=== PATIENT | male | born 1955 | race African-American/Black ===

== ENCOUNTER 2017-03-04 22:05 | Inpatient (IN) | payer MEDICAID, OTHER ==
[~2017-03-04] VITALS: Ht 185.4 cm; Wt 114.8 kg
[~2017-03-04 22:05] MED LIST: AMARYL1 MG PO; APRESOLINE100 MG PO; ATENOLOL50 MG PO; CATAPRES0.2 MG PO; CYCLOBENZAPRINE10 MG ORAL; DOC-Q-LACE100 MG PO; JANUVIA100 MG PO; NORVASC5 MG PO; ONDANSETRON ODT4 MG PO; PROCHLORPERAZINE5 MG ORAL; PROCHLORPERAZINE5 MG PO; TRICOR145 MG PO
[2017-03-04 22:30] VITALS: BP 135/73
[2017-03-04 23:31] LABS: APPEARANCE,URINE CLEAR; KETONES,URINE NEGATIVE (NEGATIVE); LEUKOCYTE ESTERASE ,URINE NEGATIVE (NEGATIVE); NITRITE,URINE NEGATIVE (NEGATIVE); PH,URINE 5 (4.5-8.0); UROBILINOGEN,URINE NORMAL MG/DL (0.0-1.0)
[2017-03-04 23:32] LABS: BASOPHILS % (AUTO) 1.8 % (0.0-2.0); EOSINOPHILS % (AUTO) 2.8 % (0.0-3.0); LYMPHOCYTES % (AUTO) 22.5 % (20.0-45.0); MEAN CORPUSCULAR HEMOGLOBIN 30.8 PG (27.0-31.0); MEAN CORPUSCULAR HGB CONC 34.5 G/DL (32.0-36.0); MEAN CORPUSCULAR VOLUME 89 FL (80-99); MEAN PLATELET VOLUME 8.5 FL (6.5-10.1); MONOCYTES % (AUTO) 12.5 % (1.0-10.0); NEUTROPHILS % (AUTO) 60.4 % (45.0-75.0); PLATELET COUNT 184 K/UL (150-450); RED BLOOD COUNT 3.76 M/UL (4.70-6.10); WHITE BLOOD COUNT 7.7 K/UL (4.8-10.8)
[2017-03-04 23:48] LABS: PROTEIN,URINE NEGATIVE (NEGATIVE)
[2017-03-04 23:52] LABS: ALANINE AMINOTRANSFERASE 11 U/L (3-41); ALBUMIN/GLOBULIN RATIO 1.1 (1.0-2.7); ANION GAP 10 (5-15); ASPARTATE AMINO TRANSFERASE 14 U/L (5-40); CALCIUM 9.6 mg/dL (8.6-10.2); CARBON DIOXIDE 27 mEQ/L (20-30); CHLORIDE 94 mEQ/L (98-107); GLOMERULAR FILTRATION RATE 41.1 mL/min (>60); HEMOLYSIS 0; MAGNESIUM 1.8 mg/dL (1.7-2.5); POTASSIUM 4.4 mEQ/L (3.4-4.9); SODIUM 131 mEQ/L (135-145); TOTAL PROTEIN 7.8 g/dL (6.6-8.7)
[2017-03-04 23:58] LABS: TROPONIN I < 0.30 ng/mL (<=0.30)
[2017-03-05] VITALS (8 sets, daily range): BP systolic 129–156; BP diastolic 64–83
--- NOTE | 2017-03-05 00:10 | Emergency Room Report ---
History of Present Illness General Chief Complaint: Abnormal Labs Source: Patient, Family Member, Caregiver Present Illness HPI The patient presents with elevated blood sugar. Apparently his insulin was changed a month ago. The mobile home set up person is uncertain what type of insulin he is on but it is most likely 70/30. He is taking 15 units 3 times a day. His blood sugar has steadily climbed. He complains about and polydipsia. His blood sugar is in the 400s tonight. Denies any chest pain, shortness of breath, palpitations, nausea, vomiting, diarrhea, dysuria. The patient is legally blind. He denies any headache. He also denies dizziness. The mobile home set up person is his sister. She does not understand about the different types of insulin. There is no history of renal disease. Allergies: Coded Allergies: No Known Allergies (Verified , 04/16/11) Patient History Past Medical History: see triage record Past Surgical History: other - eye surgery Social History: Denies: smoking Social History Narrative Lives with mobile home set up person at home who is his sister Reviewed Nursing Documentation: PMH: Agreed, PSxH: Agreed Nursing Documentation-PM Past Medical History: No History, Except For Hx Cardiac Problems: Yes Hx Hypertension: Yes Hx Diabetes: Yes - Type 2 Hx Cancer: No Hx Gastrointestinal Problems: Yes - bloating Hx Speech Problem: Yes Hx Dizziness: Yes Hx Numbness: Yes - BOTH HANDS Hx Weakness: Yes - ENTIRE BODY Hx Fatigue: Yes Hx Neurologic Surgery: No Hx Brain Shunt: No Review of Systems All Other Systems: negative except mentioned in HPI Physical Exam Vital Signs Date Time Temp Pulse Resp B/P Pulse Ox O2 Delivery O2 Flow Rate FiO2 03/04/17 22:22 98.2 72 16 135/73 99 Room Air Sp02 EP Interpretation: reviewed, normal General Appearance: well appearing, no apparent distress, GCS 15 Head: normocephalic Eyes: bilateral eye normal inspection ENT: moist mucus membranes - poor dentition Neck: supple Respiratory: lungs clear, normal breath sounds Cardiovascular #1: regular rate, rhythm Cardiovascular #2: 2+ radial (R) Gastrointestinal: normal inspection, normal bowel sounds, non tender, no mass, non-distended, overweight Musculoskeletal: back normal, normal range of motion Neurologic: alert, oriented x3, grossly normal Psychiatric: mood/affect normal Skin: normal inspection, warm/dry Medical Decision Making Diagnostic Impression: Primary Impression: Hyperglycemia Additional Impression: Renal failure ER Course Patient presents with high blood sugar. Differential includes DKA, hyperosmolar state, hyperglycemia, renal dysfunction and other dry abnormalities. Clinically the patient is fairly stable however needs to exclude cardiac cause. Labs EKG chest x-ray will be obtained. Also the patient will be treated with IV hydration and possibly insulin. Sugars high after initial bolus. Insulin was given. There is no evidence of DKA. However the patient does have renal failure. Indices do not demonstrate the need for dialysis acutely. However his BUN and creatinine are elevated compared to previous studies we had and there is no prior history of renal failure. The mobile home set up person is uncertain about how best to control blood sugars. Because of this constellation of factors the patient is admitted to the hospital. Patient was presented to Dr. Castro and accepted in transfer to [facility]. Due to time delay - admitting here. Dr. Aguila contacted. Dr. Aguila states not seen for long time. Admit to Dr. Velásquez. Laboratory Tests Test 03/04/17 23:13 03/04/17 23:19 Troponin I < 0.30 ng/mL (<=0.30) White Blood Count 7.7 K/UL (4.8-10.8) Red Blood Count 3.76 M/UL (4.70-6.10) L Hemoglobin 11.6 G/DL (14.2-18.0) L Hematocrit 33.6 % (42.0-52.0) L Mean Corpuscular Volume 89 FL (80-99) Mean Corpuscular Hemoglobin 30.8 PG (27.0-31.0) Mean Corpuscular Hemoglobin Concent 34.5 G/DL (32.0-36.0) Red Cell Distribution Width 12.0 % (11.6-14.8) Platelet Count 184 K/UL (150-450) Mean Platelet Volume 8.5 FL (6.5-10.1) Neutrophils (%) (Auto) 60.4 % (45.0-75.0) Lymphocytes (%) (Auto) 22.5 % (20.0-45.0) Monocytes (%) (Auto) 12.5 % (1.0-10.0) H Eosinophils (%) (Auto) 2.8 % (0.0-3.0) Basophils (%) (Auto) 1.8 % (0.0-2.0) Urine Color Yellow Urine Appearance Clear Urine pH 5 (4.5-8.0) Urine Specific [place] 1.015 (1.005-1.035) Urine Protein Negative (NEGATIVE) Urine Glucose (UA) 4+ (NEGATIVE) H Urine Ketones Negative (NEGATIVE) Urine Occult Blood Negative (NEGATIVE) Urine Nitrite Negative (NEGATIVE) Urine Bilirubin Negative (NEGATIVE) Urine Urobilinogen Normal MG/DL (0.0-1.0) Urine Leukocyte Esterase Negative (NEGATIVE) Sodium Level 131 mEQ/L (135-145) L Potassium Level 4.4 mEQ/L (3.4-4.9) Chloride Level 94 mEQ/L (98-107) L Carbon Dioxide Level 27 mEQ/L (20-30) Anion Gap 10 (5-15) Blood Urea Nitrogen 28 mg/dL (7-23) H Creatinine 2.0 mg/dL (0.7-1.2) H Estimate Glomerular Filtration Rate 41.1 mL/min (>60) Glucose Level 369 mg/dL (74-106) H Calcium Level 9.6 mg/dL (8.6-10.2) Magnesium Level 1.8 mg/dL (1.7-2.5) Total Bilirubin 0.4 mg/dL (0.0-1.2) Aspartate Amino Transferase (AST) 14 U/L (5-40) Alanine Aminotransferase (ALT) 11 U/L (3-41) Alkaline Phosphatase 47 U/L (40-129) Total Protein 7.8 g/dL (6.6-8.7) Albumin 4.2 g/dL (3.5-5.2) Globulin 3.6 g/dL Albumin/Globulin Ratio 1.1 (1.0-2.7) Acetone Level Negative (NEGATIVE) EKG Diagnostic Results Rate: normal Rhythm: NSR ST Segments: no acute changes - 1st degree AV block Rhythm Strip Diag. Results EP Interpretation: yes Rhythm: NSR, no PVC's, no ectopy Chest X-Ray Diagnostic Results EP Interpretation: Yes Findings: no consolidation, no effusion, no pneumothorax, other - inc cor and RML atelectasis Number of Views: 1 Last Vital Signs Date Time Temp Pulse Resp B/P Pulse Ox O2 Delivery O2 Flow Rate FiO2 03/05/17 18:16 156/74 03/05/17 16:02 98.1 71 20 99 Room Air Status: improved Disposition: ADMITTED INPATIENT Condition: Serious Referrals: GM AGUILA (PCP) Oc [place] M.D. Mar 05, 2017 00:10
[2017-03-05] MEDS ORDERED: UNOBMED (01:23)
[2017-03-05 08:00] LABS: EOSINOPHILS % (AUTO) 2.9 % (0.0-3.0); LYMPHOCYTES % (AUTO) 20.2 % (20.0-45.0); MEAN CORPUSCULAR HEMOGLOBIN 29.5 PG (27.0-31.0); MEAN CORPUSCULAR HGB CONC 32.7 G/DL (32.0-36.0); MEAN CORPUSCULAR VOLUME 90 FL (80-99); MEAN PLATELET VOLUME 9.9 FL (6.5-10.1); MONOCYTES % (AUTO) 10.6 % (1.0-10.0); NEUTROPHILS % (AUTO) 64.2 % (45.0-75.0); PLATELET COUNT 187 K/UL (150-450); RED BLOOD COUNT 3.56 M/UL (4.70-6.10); RED CELL DISTRIBUTION WIDTH 12.2 % (11.6-14.8); WHITE BLOOD COUNT 6.4 K/UL (4.8-10.8)
[2017-03-05 08:08] LABS: ALBUMIN/GLOBULIN RATIO 1.1 (1.0-2.7); CALCIUM 8.9 mg/dL (8.6-10.2); CREATININE 1.6 mg/dL (0.7-1.2); GLOMERULAR FILTRATION RATE 53.2 mL/min (>60); PHOSPHORUS 2.9 mg/dL (2.5-4.8); POTASSIUM 4.2 mEQ/L (3.4-4.9); TOTAL PROTEIN 6.8 g/dL (6.6-8.7)
--- NOTE | 2017-03-05 11:37 | Diagnostic Imaging Report ---
Indication: Chest pain Technique: One view of the chest Comparison: 10/04/14 Findings: The heart is enlarged. No definite acute infiltrates or effusions. Impression: Cardiomegaly No acute process This agrees with the preliminary interpretation provided by the emergency room physician
[2017-03-05] MEDS ORDERED: NovoLOG Insulin Flexpen SUBQ SCH (12:00)
[2017-03-05] MEDS: NovoLOG Insulin Flexpen SUBQ SCH ×4 (12:25→21:52)
[2017-03-05] MEDS ORDERED: NEURONTIN300 MG ORAL (14:55)
[2017-03-05] MEDS ORDERED: HUMALOG100 UNIT/4 SUBQ (14:55)
[2017-03-05] MEDS ORDERED: GLIMEPIRIDE4 MG ORAL (14:55)
--- NOTE | 2017-03-05 15:18 | Consultation ---
History of Present Illness General Date patient seen: Mar 05, 2017 Chief Complaint: Abnormal Labs Referring physician: DR. Ash Reason for Consultation: inpatient management Present Illness HPI 61 year old male with hx of DM, HTN, diabetic retinopathy and nephropathy presented with elevated blood sugar. He is taking 15 units 3 times a day. His blood sugar steadily climbed. His blood sugars in the 400s tonight. Allergies: Coded Allergies: No Known Allergies (Verified , 04/16/11) Medication History Scheduled Atenolol* (Tenormin*), 100 MG PO BID, (Reported) Clonidine Hcl* (Catapres*), 0.2 MG PO TID, (Reported) Fenofibrate (Tricor), 145 MG PO DAILY, (Reported) Gabapentin (Neurontin), 300 MG ORAL THREE TIMES A DAY, (Reported) Gabapentin (Neurontin), 300 MG ORAL THREE TIMES A DAY, (Reported) Glimepiride* (Glimepiride*), 4 MG ORAL BEFORE BREAKFAST, (Reported) Hydralazine HCl (Hydralazine HCl), 100 MG PO BID, (Reported) Miscellaneous Medications Insulin Lispro (Humalog), 0 SUBQ, (Reported) Unable to Obtain Medications (Unable To Obtain Meds), (Reported) Discontinued Medications Glimepiride* (Amaryl*), 2 MG PO DAILY, (Reported) Discontinued Reason: MD discontinued med Sitagliptin (Januvia), 100 MG PO DAILY, (Reported) Discontinued Reason: Pt had allergic rxn Patient History Healthcare decision maker Resuscitation status Full Code Advanced Directive on File No Past Medical/Surgical History Past Medical/Surgical History: (1) Diabetes mellitus (2) HTN (hypertension) Review of Systems All Other Systems: negative except mentioned in HPI Physical Exam General Appearance: WD/WN Lines, tubes and drains: peripheral HEENT: normocephalic, atraumatic Neck: non-tender, normal alignment Respiratory/Chest: chest wall non-tender, lungs clear Cardiovascular/Chest: normal peripheral pulses, normal rate Abdomen: normal bowel sounds Genitourinary/Rectal: normal genital exam Last 24 Hour Vital Signs Date Time Temp Pulse Resp B/P Pulse Ox O2 Delivery O2 Flow Rate FiO2 03/05/17 11:47 98.2 69 20 153/83 99 Room Air 03/05/17 09:08 98.0 77 20 129/64 98 Room Air 03/05/17 08:00 98.0 70 16 137/70 99 Room Air 03/05/17 06:30 98.0 70 16 137/70 99 Room Air 03/05/17 04:30 98.0 65 17 143/72 99 Room Air 03/05/17 02:30 98.2 69 15 140/70 99 Room Air 03/05/17 00:30 98.2 69 15 137/69 99 Room Air 03/04/17 22:30 98.2 72 16 135/73 99 Room Air 03/04/17 22:22 98.2 72 16 135/73 99 Room Air Intake and Output 03/04/17 03/05/17 19:00 07:00 Intake Total 1000 ml Output Total 1400 ml Balance -400 ml IV Total 1000 ml Output Urine Total 1400 ml # Voids 1 Laboratory Tests Test 03/04/17 23:13 03/04/17 23:19 03/05/17 07:10 Troponin I < 0.30 ng/mL (<=0.30) White Blood Count 7.7 K/UL (4.8-10.8) 6.4 K/UL (4.8-10.8) Red Blood Count 3.76 M/UL (4.70-6.10) L 3.56 M/UL (4.70-6.10) L Hemoglobin 11.6 G/DL (14.2-18.0) L 10.5 G/DL (14.2-18.0) L Hematocrit 33.6 % (42.0-52.0) L 32.0 % (42.0-52.0) L Mean Corpuscular Volume 89 FL (80-99) 90 FL (80-99) Mean Corpuscular Hemoglobin 30.8 PG (27.0-31.0) 29.5 PG (27.0-31.0) Mean Corpuscular Hemoglobin Concent 34.5 G/DL (32.0-36.0) 32.7 G/DL (32.0-36.0) Red Cell Distribution Width 12.0 % (11.6-14.8) 12.2 % (11.6-14.8) Platelet Count 184 K/UL (150-450) 187 K/UL (150-450) Mean Platelet Volume 8.5 FL (6.5-10.1) 9.9 FL (6.5-10.1) Neutrophils (%) (Auto) 60.4 % (45.0-75.0) 64.2 % (45.0-75.0) Lymphocytes (%) (Auto) 22.5 % (20.0-45.0) 20.2 % (20.0-45.0) Monocytes (%) (Auto) 12.5 % (1.0-10.0) H 10.6 % (1.0-10.0) H Eosinophils (%) (Auto) 2.8 % (0.0-3.0) 2.9 % (0.0-3.0) Basophils (%) (Auto) 1.8 % (0.0-2.0) 2.0 % (0.0-2.0) Urine Color Yellow Urine Appearance Clear Urine pH 5 (4.5-8.0) Urine Specific [place] 1.015 (1.005-1.035) Urine Protein Negative (NEGATIVE) Urine Glucose (UA) 4+ (NEGATIVE) H Urine Ketones Negative (NEGATIVE) Urine Occult Blood Negative (NEGATIVE) Urine Nitrite Negative (NEGATIVE) Urine Bilirubin Negative (NEGATIVE) Urine Urobilinogen Normal MG/DL (0.0-1.0) Urine Leukocyte Esterase Negative (NEGATIVE) Sodium Level 131 mEQ/L (135-145) L 137 mEQ/L (135-145) Potassium Level 4.4 mEQ/L (3.4-4.9) 4.2 mEQ/L (3.4-4.9) Chloride Level 94 mEQ/L (98-107) L 99 mEQ/L (98-107) Carbon Dioxide Level 27 mEQ/L (20-30) 24 mEQ/L (20-30) Anion Gap 10 (5-15) 14 (5-15) Blood Urea Nitrogen 28 mg/dL (7-23) H 25 mg/dL (7-23) H Creatinine 2.0 mg/dL (0.7-1.2) H 1.6 mg/dL (0.7-1.2) H Estimat Glomerular Filtration Rate 41.1 mL/min (>60) 53.2 mL/min (>60) Glucose Level 369 mg/dL (74-106) H 233 mg/dL (74-106) #H Calcium Level 9.6 mg/dL (8.6-10.2) 8.9 mg/dL (8.6-10.2) Magnesium Level 1.8 mg/dL (1.7-2.5) Total Bilirubin 0.4 mg/dL (0.0-1.2) 0.3 mg/dL (0.0-1.2) Aspartate Amino Transf (AST/SGOT) 14 U/L (5-40) 13 U/L (5-40) Alanine Aminotransferase (ALT/SGPT) 11 U/L (3-41) 7 U/L (3-41) Alkaline Phosphatase 47 U/L (40-129) 36 U/L (40-129) L Total Protein 7.8 g/dL (6.6-8.7) 6.8 g/dL (6.6-8.7) Albumin 4.2 g/dL (3.5-5.2) 3.7 g/dL (3.5-5.2) Globulin 3.6 g/dL 3.1 g/dL Albumin/Globulin Ratio 1.1 (1.0-2.7) 1.1 (1.0-2.7) Acetone Level Negative (NEGATIVE) Phosphorus Level 2.9 mg/dL (2.5-4.8) Height (Feet): 6 Height (Inches): 1.00 Weight (Pounds): 253 Medications Current Medications Medications (Trade) Dose Ordered Sig/Enrrique Route PRN Reason Start Time Stop Time Status Last Admin Dose Admin Dextrose (Dextrose 50%) STAT PRN IV Hypoglycemia 03/05/17 09:30 04/04/17 09:29 Insulin Aspart (NovoLOG) x24 EVERY 4 HOURS SUBQ 03/05/17 12:00 04/04/17 11:59 03/05/17 12:25 Sodium Chloride (Sodium Chloride 1000ml bag) 1,000 ml @ 200 mls/hr Q5H IV 03/05/17 07:30 04/04/17 07:29 03/05/17 13:22 Assessment/Plan Problem List: (1) Uncontrolled diabetes mellitus ICD Codes: E11.65 - Type 2 diabetes mellitus with hyperglycemia SNOMED: 962257172 (2) HTN (hypertension) ICD Codes: I10 - Essential (primary) hypertension SNOMED: 49702672 Assessment/Plan sliding scale insulin coverage endo consult ABNER COATES Mar 05, 2017 15:18
[2017-03-05] MEDS: HydrALAZINE 50mg tab ORAL SCH ×2 (16:16→23:17)
[2017-03-05 16:35] LABS: URIC ACID 3.6 mg/dL (3.0-7.5)
[2017-03-05] MEDS: cloNIDine 0.2mg Tab ORAL SCH (18:16)
--- NOTE | 2017-03-05 18:45 | History & Physical ---
History and Physical History & Physicial Dictated for Int Med-Dr Velásquez no. [id number]. KHALIF SOLANO Mar 05, 2017 18:45
[2017-03-05] MEDS ORDERED: Levemir Flexpen SUBQ SCH (21:00)
[2017-03-05 21:25] LABS: APPEARANCE,URINE CLEAR; KETONES,URINE NEGATIVE (NEGATIVE); LEUKOCYTE ESTERASE ,URINE NEGATIVE (NEGATIVE); NITRITE,URINE NEGATIVE (NEGATIVE); PH,URINE 6 (4.5-8.0); PROTEIN,URINE 2+ (NEGATIVE); UROBILINOGEN,URINE 1 MG/DL (0.0-1.0)
[2017-03-05 22:12] LABS: AMORPHOUS SEDIMENT,UR FEW /LPF; BACTERIA,URINE FEW /HPF
[2017-03-05] MEDS: Heparin 5000 units/ml inj SUBQ SCH (23:19)
--- NOTE | 2017-03-05 23:38 | History and Physical Report ---
DATE OF ADMISSION: 03/05/2017 CHIEF COMPLAINT: The patient is a 61-year-old male, presents with chief complaint of high blood sugars. HISTORY OF PRESENT ILLNESS: The patient has a history of type 2 diabetes. The patient states that his insurance changed about a month ago. The patient was previously on 70/30 insulin. I was no longer covered by his insurance. The patient was switched to regular insulin. The patient takes regular insulin 10 units before every meals and nightly. The patient states over the last month his blood sugars have been increasingly high. The patient states yesterday his blood sugar reached 454. The patient presented to [facility]. The patient was admitted for hyperglycemia to rule out diabetic ketoacidosis. REVIEW OF SYSTEMS: Constitutional: The patient denies weight loss or weight gain. The patient denies fever or chills. HEENT: The patient denies any ear or throat pain. Cardiovascular: The patient denies palpitations or chest pain. Chest: The patient denies wheeze or shortness of breath. Abdomen: The patient denies nausea, vomiting, diarrhea, or constipation. Genitourinary: The patient denies dysuria or increased frequency of urination. Neuromuscular: The patient denies seizures or generalized weakness. PAST MEDICAL HISTORY: Significant for: 1. Type 2 diabetes. 2. Hypertension. 3. Osteoarthritis. 4. Diabetic peripheral neuropathy. PAST SURGICAL HISTORY: Significant for debridement of a right diabetic foot ulcer. CURRENT MEDICATIONS: 1. atenolol 50 mg one tablet p.o. daily. 2. Clonidine 0.2 mg one tablet p.o. three times daily. 3. Fenofibrate 145 mg one tablet p.o. daily. 4. Gabapentin 300 mg one tablet p.o. three times daily. 5. Glimepiride 4 mg one tablet p.o. q.a.m. 6. Hydralazine 100 mg one tablet p.o. twice daily. 7. Regular insulin 10 units subcutaneously before every meal and nightly. ALLERGIES: No known drug allergies. SOCIAL HISTORY: The patient is single and is disabled. The patient has a caregiver, his sister Evelyn Fink. The patient denies tobacco or alcohol use. PHYSICAL EXAMINATION: VITAL SIGNS: Temperature 98.0, respirations 16, pulse 70, and blood pressure 137/70. GENERAL: The patient is a well-developed and well-nourished male, in no apparent distress. HEENT: Eyes, pupils are equal and responsive to light and accommodation. Extraocular movements are intact. NECK: Supple without lymphadenopathy. CHEST: Lungs are clear to auscultation bilaterally without wheezes or rales. CARDIOVASCULAR: Regular rate. S1 and S2. No murmurs, rubs, or gallops. ABDOMEN: Soft, nontender, and nondistended. Positive bowel sounds. There is no evidence of hepatosplenomegaly. Currently no rebound or guarding. EXTREMITIES: Negative for clubbing, cyanosis, or edema. RECTAL/GENITAL: Refused. NEUROLOGIC: Cranial nerves II through XII are grossly intact without focal deficits. Motor strength is 5/5 bilaterally. Deep tendon reflexes are 2+ plantar. LABORATORY STUDIES: WBC 7.7, hemoglobin 11.6, hematocrit 33.6, and platelets 184,000. Sodium 131, potassium 4.4, chloride 94, CO2 27, BUN 28, creatinine 2.0, and glucose 369. Hemoglobin A1c is pending. Urinalysis showed 4+ glucose, otherwise within normal limits. ASSESSMENT: This is a 61-year-old male: 1. Hyperglycemia. 2. Diabetes type 2. 3. Hypertension. 4. Hypercholesterolemia. TREATMENT: 1. Hyperglycemia. This is probably secondary to insufficient insulin. The patient may require a longer-acting insulin. An Endocrinology consultation was obtained with Dr. Hector. The problem will be coverage by the patient's insurance. Currently I will start Levemir 20 units twice daily. We will follow recommendations of Dr. Hector. 2. Diabetes. Please see hyperglycemia above. 3. Hypertension. Continue atenolol, clonidine, and hydralazine as above. 4. Hypercholesterolemia. Continue fenofibrate as above. Porfirio Ash M.D. DR: FORTUNATO JOB#: [id number] CC:
[2017-03-06] VITALS: BP 152/75
[2017-03-06] MEDS: NovoLOG Insulin Flexpen SUBQ SCH ×8 (01:22→20:54)
[2017-03-06 04:00] VITALS: BP 161/87
[2017-03-06] MEDS: Heparin 5000 units/ml inj SUBQ SCH ×3 (05:47→20:55)
[2017-03-06] MEDS: Glimepiride 4mg tab ORAL SCH (06:42)
[2017-03-06] MEDS: HydrALAZINE 50mg tab ORAL SCH ×3 (06:42→20:54)
[2017-03-06 07:26] LABS: BASOPHILS % (AUTO) 1.6 % (0.0-2.0); LYMPHOCYTES % (AUTO) 15.2 % (20.0-45.0); MEAN CORPUSCULAR HEMOGLOBIN 28.9 PG (27.0-31.0); MEAN CORPUSCULAR HGB CONC 32.1 G/DL (32.0-36.0); MEAN CORPUSCULAR VOLUME 90 FL (80-99); MEAN PLATELET VOLUME 9.6 FL (6.5-10.1); MONOCYTES % (AUTO) 7.3 % (1.0-10.0); NEUTROPHILS % (AUTO) 73.9 % (45.0-75.0); PLATELET COUNT 208 K/UL (150-450); RED BLOOD COUNT 3.99 M/UL (4.70-6.10); RED CELL DISTRIBUTION WIDTH 12.2 % (11.6-14.8); WHITE BLOOD COUNT 8.8 K/UL (4.8-10.8)
[2017-03-06 08:00] VITALS: BP 163/85
[2017-03-06 08:08] LABS: CORTISOL LC 13.1 ug/dL (.); FREE TRIIODOTHYRONINE 2.9 pg/mL (2.0-4.4)
[2017-03-06 08:32] LABS: ALANINE AMINOTRANSFERASE 10 U/L (3-41); ALBUMIN/GLOBULIN RATIO 1.2 (1.0-2.7); ANION GAP 16 (5-15); ASPARTATE AMINO TRANSFERASE 15 U/L (5-40); CALCIUM 9.1 mg/dL (8.6-10.2); CARBON DIOXIDE 23 mEQ/L (20-30); CHLORIDE 100 mEQ/L (98-107); CREATININE 1.4 mg/dL (0.7-1.2); GLOMERULAR FILTRATION RATE > 60 mL/min (>60); HEMOLYSIS 0; MAGNESIUM 1.8 mg/dL (1.7-2.5); PHOSPHORUS 2.1 mg/dL (2.5-4.8); POTASSIUM 4.4 mEQ/L (3.4-4.9); SODIUM 139 mEQ/L (135-145); TOTAL PROTEIN 7.3 g/dL (6.6-8.7)
[2017-03-06] MEDS: cloNIDine 0.2mg Tab ORAL SCH ×3 (09:22→17:06)
[2017-03-06 12:00] VITALS: BP 170/83
[2017-03-06 16:00] VITALS: BP 144/70
--- NOTE | 2017-03-06 18:07 | Internal Med Progress Note ---
Subjective Date of Service: Mar 06, 2017 Physician Name Khalif Solano Attending Physician Javier Velásquez MD Current Medications Medications (Trade) Dose Ordered Sig/Enrrique Route PRN Reason Start Time Stop Time Status Last Admin Dose Admin Atenolol (Tenormin) 100 mg Q12HR ORAL 03/05/17 21:00 04/04/17 20:59 03/06/17 09:22 Clonidine HCl (Catapres) 0.2 mg TID ORAL 03/05/17 18:00 04/04/17 17:59 03/06/17 17:06 Dextrose (Dextrose 50%) STAT PRN IV Hypoglycemia 03/05/17 09:30 04/04/17 09:29 Fenofibrate (Tricor) 145 mg DAILY ORAL 03/06/17 09:00 04/05/17 08:59 03/06/17 10:37 Gabapentin (Neurontin) 300 mg THREE TIMES A DAY ORAL 03/05/17 18:00 04/04/17 17:59 03/06/17 17:06 Glimepiride (Amaryl) 4 mg BEFORE BREAKFAST ORAL 03/06/17 06:30 04/05/17 06:29 03/06/17 06:42 Heparin Sodium (Porcine) (Heparin 5000 units/ml) 5,000 units EVERY 8 HOURS SUBQ 03/05/17 22:00 04/04/17 21:59 03/06/17 14:06 Hydralazine HCl (Apresoline) 50 mg Q8HR ORAL 03/05/17 16:00 04/04/17 15:59 03/06/17 14:08 Insulin Aspart (NovoLOG) 6 units NOVOTIAC SUBQ 03/06/17 11:50 04/05/17 11:49 03/06/17 17:01 Insulin Aspart (NovoLOG) x24 EVERY 4 HOURS SUBQ 03/05/17 12:00 04/04/17 11:59 03/06/17 17:00 Insulin Detemir (Levemir) 24 units BEDTIME SUBQ 03/06/17 21:00 04/05/17 20:59 Sodium Chloride (Sodium Chloride 1000ml bag) 1,000 ml @ 200 mls/hr Q5H IV 03/05/17 07:30 04/04/17 07:29 03/06/17 14:00 Allergies: Coded Allergies: No Known Allergies (Verified , 04/16/11) ROS Limited/Unobtainable: No Constitutional: Reports: no symptoms HEENT: Reports: no symptoms Cardiovascular: Reports: no symptoms Respiratory: Reports: no symptoms Gastrointestinal/Abdominal: Reports: no symptoms Genitourinary: Reports: no symptoms Neurologic/Psychiatric: Reports: no symptoms Subjective 61 YO M admitted with hyperglycemia. Cover for Int Camilo-Dr Velásquez. Await Endocrinology consult. Objective Last Vital Signs Date Time Temp Pulse Resp B/P Pulse Ox O2 Delivery O2 Flow Rate FiO2 03/06/17 17:06 144/70 03/06/17 16:00 98.1 70 18 100 Room Air Laboratory Tests Test 03/05/17 20:35 03/06/17 05:50 Urine Color Yellow Urine Appearance Clear Urine pH 6 (4.5-8.0) Urine Specific [place] 1.015 (1.005-1.035) Urine Protein 2+ (NEGATIVE) H Urine Glucose (UA) 4+ (NEGATIVE) H Urine Ketones Negative (NEGATIVE) Urine Occult Blood 1+ (NEGATIVE) H Urine Nitrite Negative (NEGATIVE) Urine Bilirubin Negative (NEGATIVE) Urine Urobilinogen 1 MG/DL (0.0-1.0) H Urine Leukocyte Esterase Negative (NEGATIVE) Urine RBC 5-10 /HPF (0 - 0) H Urine WBC 2-4 /HPF (0 - 0) Urine Squamous Epithelial Cells None /LPF (NONE/OCC) Urine Amorphous Sediment Few /LPF (NONE) H Urine Bacteria Few /HPF (NONE) Urine Eosinophils None seen Urine Osmolality Pending Urine Random Sodium 121 mmol/L Urine Random Chloride 112 mmol/L Urine Potassium Timed 21 mmol/L White Blood Count 8.8 K/UL (4.8-10.8) Red Blood Count 3.99 M/UL (4.70-6.10) L Hemoglobin 11.5 G/DL (14.2-18.0) L Hematocrit 36.0 % (42.0-52.0) L Mean Corpuscular Volume 90 FL (80-99) Mean Corpuscular Hemoglobin 28.9 PG (27.0-31.0) Mean Corpuscular Hemoglobin Concent 32.1 G/DL (32.0-36.0) Red Cell Distribution Width 12.2 % (11.6-14.8) Platelet Count 208 K/UL (150-450) Mean Platelet Volume 9.6 FL (6.5-10.1) Neutrophils (%) (Auto) 73.9 % (45.0-75.0) Lymphocytes (%) (Auto) 15.2 % (20.0-45.0) L Monocytes (%) (Auto) 7.3 % (1.0-10.0) Eosinophils (%) (Auto) 2.0 % (0.0-3.0) Basophils (%) (Auto) 1.6 % (0.0-2.0) Sodium Level 139 mEQ/L (135-145) Potassium Level 4.4 mEQ/L (3.4-4.9) Chloride Level 100 mEQ/L (98-107) Carbon Dioxide Level 23 mEQ/L (20-30) Anion Gap 16 (5-15) H Blood Urea Nitrogen 16 mg/dL (7-23) Creatinine 1.4 mg/dL (0.7-1.2) H Estimat Glomerular Filtration Rate > 60 mL/min (>60) Glucose Level 197 mg/dL (74-106) H Hemoglobin A1c 8.8 % (< 6.0) H Calcium Level 9.1 mg/dL (8.6-10.2) Phosphorus Level 2.1 mg/dL (2.5-4.8) L Magnesium Level 1.8 mg/dL (1.7-2.5) Total Bilirubin 0.4 mg/dL (0.0-1.2) Aspartate Amino Transf (AST/SGOT) 15 U/L (5-40) Alanine Aminotransferase (ALT/SGPT) 10 U/L (3-41) Alkaline Phosphatase 39 U/L (40-129) L Total Protein 7.3 g/dL (6.6-8.7) Albumin 4.0 g/dL (3.5-5.2) Globulin 3.3 g/dL Albumin/Globulin Ratio 1.2 (1.0-2.7) Intake and Output 03/05/17 03/06/17 19:00 07:00 Intake Total 1910 ml 1160 ml Output Total 3325 ml Balance 1910 ml -2165 ml Intake Oral 1010 ml 960 ml IV Total 900 ml 200 ml Output Urine Total 3325 ml # Voids 2 Objective General: alert, cooperative, no distress, appears stated age Head: normocephalic, without obvious abnormality, atraumatic Eyes: conjunctivae/corneas clear. PERRL, EOM's intact Throat: lips, mucosa, and tongue normal. MMM Neck: supple, symmetrical, trachea midline, and no JVD Lungs: clear to auscultation bilaterally Heart: regular rate and rhythm, S1, S2 normal, no murmur, click, rub or gallop Abdomen: soft, non-tender, non-distended, bowel sounds normal; no masses or organomegaly Extremities: extremities normal, atraumatic, no cyanosis or edema Pulses: 2+ and symmetric Skin: skin color, texture, turgor normal; no rashes or lesions Neurologic: grossly normal, no focal deficits Assessment/Plan Problem List: (1) Hypercholesteremia Assessment & Plan: Cont tricor (2) Hyperglycemia Assessment & Plan: Improving. Await endocrinology consult. Cont novolog sliding scale and amaryl. Start levemir QHS (3) Uncontrolled diabetes mellitus (4) HTN (hypertension) Assessment & Plan: Cont hydralazine and atenolol Status: progressing KHALIF SOLANO Mar 06, 2017 18:07
--- NOTE | 2017-03-06 18:44 | Pulmonology Progress Note ---
Assessment/Plan Problems: (1) Uncontrolled diabetes mellitus (2) HTN (hypertension) (3) Cardiomegaly (4) Renal failure Assessment/Plan improving Bs better f/u renal parameters echo to evaluate cardiomegaly Subjective ROS Limited/Unobtainable: No Interval Events: feeling better Constitutional: Reports: no symptoms HEENT: Repors: no symptoms Allergies: Coded Allergies: No Known Allergies (Verified , 04/16/11) Objective Last 24 Hour Vital Signs Date Time Temp Pulse Resp B/P Pulse Ox O2 Delivery O2 Flow Rate FiO2 03/06/17 17:06 144/70 03/06/17 16:00 98.1 70 18 144/70 100 Room Air 03/06/17 14:08 163/85 03/06/17 14:08 163/85 03/06/17 12:00 98.1 70 18 170/83 98 Room Air 03/06/17 09:22 163/85 03/06/17 09:22 72 163/85 03/06/17 08:00 98.1 72 20 163/85 100 Room Air 03/06/17 06:42 161/87 03/06/17 04:00 98.2 72 20 161/87 100 Room Air 03/06/17 00:00 97.7 72 20 152/75 99 Room Air 03/05/17 23:17 142/71 03/05/17 21:53 71 156/74 03/05/17 21:00 97.9 67 20 146/76 100 Room Air Intake and Output 03/05/17 03/06/17 19:00 07:00 Intake Total 1910 ml 1160 ml Output Total 3325 ml Balance 1910 ml -2165 ml Intake Oral 1010 ml 960 ml IV Total 900 ml 200 ml Output Urine Total 3325 ml # Voids 2 General Appearance: WD/WN HEENT: normocephalic, atraumatic Respiratory/Chest: chest wall non-tender, lungs clear Cardiovascular: normal peripheral pulses Abdomen: normal bowel sounds, soft, non tender, no organomegaly Genitourinary: normal external genitalia Neurologic/Psychiatric: box maker paperboard II-XII grossly normal, no motor/sensory deficits Lymphatic: no neck adenopathy Laboratory Tests 03/05/17 20:35: Urine Color Yellow, Urine Appearance Clear, Urine pH 6, Urine Specific [place] 1.015, Urine Protein 2+H, Urine Glucose (UA) 4+H, Urine Ketones Negative, Urine Occult Blood 1+H, Urine Nitrite Negative, Urine Bilirubin Negative, Urine Urobilinogen 1H, Urine Leukocyte Esterase Negative, Urine RBC 5-10H, Urine WBC 2 -4, Urine Squamous Epithelial Cells None, Urine Amorphous Sediment FewH, Urine Bacteria Few, Urine Eosinophils None seen, Urine Osmolality [Pending], Urine Random Sodium 121, Urine Random Chloride 112, Urine Potassium Timed 21 03/06/17 05:50: White Blood Count 8.8, Red Blood Count 3.99L, Hemoglobin 11.5L, Hematocrit 36.0L , Mean Corpuscular Volume 90, Mean Corpuscular Hemoglobin 28.9, Mean Corpuscular Hemoglobin Concent 32.1, Red Cell Distribution Width 12.2, Platelet Count 208, Mean Platelet Volume 9.6, Neutrophils (%) (Auto) 73.9, Lymphocytes (% ) (Auto) 15.2L, Monocytes (%) (Auto) 7.3, Eosinophils (%) (Auto) 2.0, Basophils (%) (Auto) 1.6, Sodium Level 139, Potassium Level 4.4, Chloride Level 100, Carbon Dioxide Level 23, Anion Gap 16H, Blood Urea Nitrogen 16, Creatinine 1.4H , Estimat Glomerular Filtration Rate > 60, Glucose Level 197H, Hemoglobin A1c 8.8H, Calcium Level 9.1, Phosphorus Level 2.1L, Magnesium Level 1.8, Total Bilirubin 0.4, Aspartate Amino Transf (AST/SGOT) 15, Alanine Aminotransferase ( ALT/SGPT) 10, Alkaline Phosphatase 39L, Total Protein 7.3, Albumin 4.0, Globulin 3.3, Albumin/Globulin Ratio 1.2 Current Medications Medications (Trade) Dose Ordered Sig/Enrrique Route PRN Reason Start Time Stop Time Status Last Admin Dose Admin Atenolol (Tenormin) 100 mg Q12HR ORAL 03/05/17 21:00 04/04/17 20:59 03/06/17 09:22 Clonidine HCl (Catapres) 0.2 mg TID ORAL 03/05/17 18:00 04/04/17 17:59 03/06/17 17:06 Dextrose (Dextrose 50%) STAT PRN IV Hypoglycemia 03/05/17 09:30 04/04/17 09:29 Fenofibrate (Tricor) 145 mg DAILY ORAL 03/06/17 09:00 04/05/17 08:59 03/06/17 10:37 Gabapentin (Neurontin) 300 mg THREE TIMES A DAY ORAL 03/05/17 18:00 04/04/17 17:59 03/06/17 17:06 Glimepiride (Amaryl) 4 mg BEFORE BREAKFAST ORAL 03/06/17 06:30 04/05/17 06:29 03/06/17 06:42 Heparin Sodium (Porcine) (Heparin 5000 units/ml) 5,000 units EVERY 8 HOURS SUBQ 03/05/17 22:00 04/04/17 21:59 03/06/17 14:06 Hydralazine HCl (Apresoline) 50 mg Q8HR ORAL 03/05/17 16:00 04/04/17 15:59 03/06/17 14:08 Insulin Aspart (NovoLOG) 6 units NOVOTIAC SUBQ 03/06/17 11:50 04/05/17 11:49 03/06/17 17:01 Insulin Aspart (NovoLOG) x24 EVERY 4 HOURS SUBQ 03/05/17 12:00 04/04/17 11:59 03/06/17 17:00 Insulin Detemir (Levemir) 24 units BEDTIME SUBQ 03/06/17 21:00 04/05/17 20:59 Sodium Chloride (Sodium Chloride 1000ml bag) 1,000 ml @ 200 mls/hr Q5H IV 03/05/17 07:30 04/04/17 07:29 03/06/17 14:00 ABNER COATES Mar 06, 2017 18:44
[2017-03-06 20:00] VITALS: BP 137/77
[2017-03-06] MEDS ORDERED: Levemir Flexpen SUBQ SCH (21:00)
[2017-03-07] VITALS (7 sets, daily range): BP systolic 132–163; BP diastolic 68–86
[2017-03-07] MEDS: NovoLOG Insulin Flexpen SUBQ SCH ×10 (01:00→22:08)
[2017-03-07] MEDS: HydrALAZINE 50mg tab ORAL SCH ×3 (06:38→22:04)
[2017-03-07] MEDS: Glimepiride 4mg tab ORAL SCH (06:38)
[2017-03-07] MEDS: Heparin 5000 units/ml inj SUBQ SCH ×3 (06:39→22:07)
[2017-03-07 07:06] LABS: BASOPHILS % (AUTO) 1.2 % (0.0-2.0); EOSINOPHILS % (AUTO) 3.5 % (0.0-3.0); LYMPHOCYTES % (AUTO) 26.5 % (20.0-45.0); MEAN CORPUSCULAR HEMOGLOBIN 29.5 PG (27.0-31.0); MEAN CORPUSCULAR HGB CONC 32.7 G/DL (32.0-36.0); MEAN CORPUSCULAR VOLUME 90 FL (80-99); MEAN PLATELET VOLUME 9.1 FL (6.5-10.1); MONOCYTES % (AUTO) 12.3 % (1.0-10.0); NEUTROPHILS % (AUTO) 56.4 % (45.0-75.0); PLATELET COUNT 199 K/UL (150-450); RED BLOOD COUNT 3.58 M/UL (4.70-6.10)
[2017-03-07 07:21] LABS: ANION GAP 13 (5-15); CALCIUM 8.6 mg/dL (8.6-10.2); CARBON DIOXIDE 25 mEQ/L (20-30); CHLORIDE 102 mEQ/L (98-107); CREATININE 1.4 mg/dL (0.7-1.2); GLOMERULAR FILTRATION RATE > 60 mL/min (>60); HEMOLYSIS 8; POTASSIUM 4.2 mEQ/L (3.4-4.9); SODIUM 140 mEQ/L (135-145)
[2017-03-07] MEDS: cloNIDine 0.2mg Tab ORAL SCH ×3 (08:34→17:31)
--- NOTE | 2017-03-07 09:15 | General Progress Note ---
Assessment/Plan Problem List: (1) Uncontrolled diabetes mellitus ICD Codes: E11.65 - Type 2 diabetes mellitus with hyperglycemia SNOMED: 642089642 (2) HTN (hypertension) ICD Codes: I10 - Essential (primary) hypertension SNOMED: 27482956 (3) Cardiomegaly ICD Codes: I51.7 - Cardiomegaly SNOMED: 6137486 Assessment/Plan DC Amaryl reduce Levemir to 18 units qhs continue Novolog to 6 units ac tid + SSI Subjective Allergies: Coded Allergies: No Known Allergies (Verified , 04/16/11) All Systems: reviewed and negative except above Subjective low glucose this morning Objective Last 24 Hour Vital Signs Date Time Temp Pulse Resp B/P Pulse Ox O2 Delivery O2 Flow Rate FiO2 03/07/17 08:35 71 143/74 03/07/17 08:34 143/74 03/07/17 08:00 97.5 71 18 143/74 99 Room Air 03/07/17 06:38 139/83 03/07/17 04:00 97.0 68 20 132/79 100 Room Air 03/07/17 00:00 97.7 70 20 139/83 100 Room Air 03/06/17 20:54 137/77 03/06/17 20:45 67 137/77 03/06/17 20:00 97.9 67 20 137/77 100 Room Air 03/06/17 17:06 144/70 03/06/17 16:00 98.1 70 18 144/70 100 Room Air 03/06/17 14:08 163/85 03/06/17 14:08 163/85 03/06/17 12:00 98.1 70 18 170/83 98 Room Air 03/06/17 09:22 163/85 03/06/17 09:22 72 163/85 Intake and Output 03/06/17 03/07/17 19:00 07:00 Intake Total 3640 ml 2120 ml Output Total 200 ml 2375 ml Balance 3440 ml -255 ml Intake Oral 1440 ml 720 ml IV Total 2200 ml 1400 ml Output Urine Total 200 ml 2375 ml # Voids 4 Laboratory Tests 03/07/17 05:10: White Blood Count 6.0, Red Blood Count 3.58L, Hemoglobin 10.5L, Hematocrit 32.2L , Mean Corpuscular Volume 90, Mean Corpuscular Hemoglobin 29.5, Mean Corpuscular Hemoglobin Concent 32.7, Red Cell Distribution Width 12.0, Platelet Count 199, Mean Platelet Volume 9.1, Neutrophils (%) (Auto) 56.4, Lymphocytes (% ) (Auto) 26.5, Monocytes (%) (Auto) 12.3H, Eosinophils (%) (Auto) 3.5H, Basophils (%) (Auto) 1.2, Sodium Level 140, Potassium Level 4.2, Chloride Level 102, Carbon Dioxide Level 25, Anion Gap 13, Blood Urea Nitrogen 12, Creatinine 1.4H, Estimat Glomerular Filtration Rate > 60, Glucose Level 99, Calcium Level 8.6 Height (Feet): 6 Height (Inches): 1.00 Weight (Pounds): 253 General Appearance: no apparent distress EENT: PERRL/EOMI Neck: normal alignment Cardiovascular: normal rate Respiratory/Chest: lungs clear Abdomen: normal bowel sounds Pelvis: normal external exam Edema: no edema noted Arm (L), no edema noted Arm (R), no edema noted Leg (L), no edema noted Leg (R), no edema noted Pedal (L), no edema noted Pedal (R), no edema noted Generalized Objective Current Medications Medications (Trade) Dose Ordered Sig/Enrrique Route PRN Reason Start Time Stop Time Status Last Admin Dose Admin Atenolol (Tenormin) 100 mg Q12HR ORAL 03/05/17 21:00 04/04/17 20:59 03/07/17 08:35 Clonidine HCl (Catapres) 0.2 mg TID ORAL 03/05/17 18:00 04/04/17 17:59 03/07/17 08:34 Dextrose (Dextrose 50%) STAT PRN IV Hypoglycemia 03/05/17 09:30 04/04/17 09:29 Fenofibrate (Tricor) 145 mg DAILY ORAL 03/06/17 09:00 04/05/17 08:59 03/07/17 08:34 Gabapentin (Neurontin) 300 mg THREE TIMES A DAY ORAL 03/05/17 18:00 04/04/17 17:59 03/07/17 08:34 Glimepiride (Amaryl) 4 mg BEFORE BREAKFAST ORAL 03/06/17 06:30 04/05/17 06:29 03/07/17 06:38 Heparin Sodium (Porcine) (Heparin 5000 units/ml) 5,000 units EVERY 8 HOURS SUBQ 03/05/17 22:00 04/04/17 21:59 03/07/17 06:39 Hydralazine HCl (Apresoline) 50 mg Q8HR ORAL 03/05/17 16:00 04/04/17 15:59 03/07/17 06:38 Insulin Aspart (NovoLOG) 6 units NOVOTIAC SUBQ 03/06/17 11:50 04/05/17 11:49 03/06/17 17:01 Insulin Aspart (NovoLOG) x24 EVERY 4 HOURS SUBQ 03/05/17 12:00 04/04/17 11:59 03/07/17 08:47 Insulin Detemir (Levemir) 24 units BEDTIME SUBQ 03/06/17 21:00 04/05/17 20:59 03/06/17 20:52 Sodium Chloride (Sodium Chloride 1000ml bag) 1,000 ml @ 200 mls/hr Q5H IV 03/05/17 07:30 04/04/17 07:29 03/07/17 05:02 Item Value Date Time Bedside Blood Glucose 141 mg/dl H 03/07/17 0847 Bedside Blood Glucose 246 mg/dl H 03/07/17 0633 Bedside Blood Glucose 105 mg/dl 03/07/17 0100 Bedside Blood Glucose 141 mg/dl H 03/06/17 2100 Bedside Blood Glucose 191 mg/dl H 03/06/17 1701 Bedside Blood Glucose 185 mg/dl H 03/06/17 1233 Bedside Blood Glucose 234 mg/dl H 03/06/17 1035 WILLIE IRWIN Mar 07, 2017 09:15
--- NOTE | 2017-03-07 12:09 | Diagnostic Imaging Report ---
Indications: Abnormal renal function tests Technique: Transabdominal real-time grayscale and duplex Doppler imaging of the kidneys, retroperitoneum, and urinary bladder was performed Findings: Comparison: Abdominal ultrasound 03/03/16 Right kidney measures 10.6 cm in length. Normal contour, echotexture, cortical thickness. No stones, other focal lesions, hydronephrosis, or obvious perinephric abnormalities. Left kidney measures 12.3 cm in length. Normal contour, echotexture, cortical thickness. No stones, other focal lesions, hydronephrosis, or obvious perinephric abnormalities. The intrahepatic portion of inferior vena cava is patent and normal caliber. The urinary bladder is distended without obvious abnormality. IMPRESSION: Sonographically unremarkable kidneys, unchanged
--- NOTE | 2017-03-07 16:52 | Internal Med Progress Note ---
Subjective Date of Service: Mar 07, 2017 Physician Name Porfirio Solano Attending Physician Javier Velásquez MD Current Medications Medications (Trade) Dose Ordered Sig/Enrrique Route PRN Reason Start Time Stop Time Status Last Admin Dose Admin Atenolol (Tenormin) 100 mg Q12HR ORAL 03/05/17 21:00 04/04/17 20:59 03/07/17 08:35 Clonidine HCl (Catapres) 0.2 mg TID ORAL 03/05/17 18:00 04/04/17 17:59 03/07/17 13:10 Dextrose (Dextrose 50%) STAT PRN IV Hypoglycemia 03/05/17 09:30 04/04/17 09:29 Fenofibrate (Tricor) 145 mg DAILY ORAL 03/06/17 09:00 04/05/17 08:59 03/07/17 08:34 Gabapentin (Neurontin) 300 mg THREE TIMES A DAY ORAL 03/05/17 18:00 04/04/17 17:59 03/07/17 08:34 Heparin Sodium (Porcine) (Heparin 5000 units/ml) 5,000 units EVERY 8 HOURS SUBQ 03/05/17 22:00 04/04/17 21:59 03/07/17 13:12 Hydralazine HCl (Apresoline) 50 mg Q8HR ORAL 03/05/17 16:00 04/04/17 15:59 03/07/17 13:10 Insulin Aspart (NovoLOG) AC+HS SUBQ 03/07/17 11:30 04/06/17 11:29 03/07/17 12:11 Insulin Aspart (NovoLOG) 6 units NOVOTIAC SUBQ 03/06/17 11:50 04/05/17 11:49 03/07/17 12:12 Insulin Detemir (Levemir) 18 units BEDTIME SUBQ 03/07/17 21:00 04/06/17 20:59 Allergies: Coded Allergies: No Known Allergies (Verified , 04/16/11) ROS Limited/Unobtainable: No Constitutional: Reports: no symptoms HEENT: Reports: no symptoms Cardiovascular: Reports: no symptoms Respiratory: Reports: no symptoms Gastrointestinal/Abdominal: Reports: no symptoms Genitourinary: Reports: no symptoms Neurologic/Psychiatric: Reports: no symptoms Subjective 61 YO M admitted with hyperglycemia. Cover for Int Med-Dr Velásquez. Objective Last Vital Signs Date Time Temp Pulse Resp B/P Pulse Ox O2 Delivery O2 Flow Rate FiO2 03/07/17 16:00 98.7 64 20 154/80 98 Room Air Laboratory Tests Test 03/07/17 05:10 White Blood Count 6.0 K/UL (4.8-10.8) Red Blood Count 3.58 M/UL (4.70-6.10) L Hemoglobin 10.5 G/DL (14.2-18.0) L Hematocrit 32.2 % (42.0-52.0) L Mean Corpuscular Volume 90 FL (80-99) Mean Corpuscular Hemoglobin 29.5 PG (27.0-31.0) Mean Corpuscular Hemoglobin Concent 32.7 G/DL (32.0-36.0) Red Cell Distribution Width 12.0 % (11.6-14.8) Platelet Count 199 K/UL (150-450) Mean Platelet Volume 9.1 FL (6.5-10.1) Neutrophils (%) (Auto) 56.4 % (45.0-75.0) Lymphocytes (%) (Auto) 26.5 % (20.0-45.0) Monocytes (%) (Auto) 12.3 % (1.0-10.0) H Eosinophils (%) (Auto) 3.5 % (0.0-3.0) H Basophils (%) (Auto) 1.2 % (0.0-2.0) Sodium Level 140 mEQ/L (135-145) Potassium Level 4.2 mEQ/L (3.4-4.9) Chloride Level 102 mEQ/L (98-107) Carbon Dioxide Level 25 mEQ/L (20-30) Anion Gap 13 (5-15) Blood Urea Nitrogen 12 mg/dL (7-23) Creatinine 1.4 mg/dL (0.7-1.2) H Estimat Glomerular Filtration Rate > 60 mL/min (>60) Glucose Level 99 mg/dL (74-106) Calcium Level 8.6 mg/dL (8.6-10.2) Intake and Output 03/06/17 03/07/17 19:00 07:00 Intake Total 3640 ml 2320 ml Output Total 200 ml 2375 ml Balance 3440 ml -55 ml Intake Oral 1440 ml 720 ml IV Total 2200 ml 1600 ml Output Urine Total 200 ml 2375 ml # Voids 4 Objective General: alert, cooperative, no distress, appears stated age Head: normocephalic, without obvious abnormality, atraumatic Eyes: conjunctivae/corneas clear. PERRL, EOM's intact Throat: lips, mucosa, and tongue normal. MMM Neck: supple, symmetrical, trachea midline, and no JVD Lungs: clear to auscultation bilaterally Heart: regular rate and rhythm, S1, S2 normal, no murmur, click, rub or gallop Abdomen: soft, non-tender, non-distended, bowel sounds normal; no masses or organomegaly Extremities: extremities normal, atraumatic, no cyanosis or edema Pulses: 2+ and symmetric Skin: skin color, texture, turgor normal; no rashes or lesions Neurologic: grossly normal, no focal deficits Assessment/Plan Problem List: (1) Hypercholesteremia Assessment & Plan: Cont tricor (2) Hyperglycemia Assessment & Plan: Improving. See endocrinology consult. Cont novolog sliding scale and discontinue amaryl. Decrease levemir to 18 units QHS (3) Uncontrolled diabetes mellitus (4) HTN (hypertension) Assessment & Plan: Cont hydralazine and atenolol Status: stable Assessment/Plan Discharge planning PORFIRIO SOLANO Mar 07, 2017 16:52
--- NOTE | 2017-03-07 18:18 | Consultation ---
DATE OF CONSULTATION: 03/06/2017 ENDOCRINOLOGY CONSULTATION CONSULTING PHYSICIAN: Dwaine Hector M.D. REFERRING PHYSICIAN: Porfirio Ash M.D. REASON FOR CONSULTATION: High blood sugar. HISTORY OF PRESENT ILLNESS: The patient is an 61-year-old male with past medical history of diabetes was out of insulin presented to the hospital with chief complaint of high blood sugar. The patient as an outpatient was on insulin 70/30 which was discontinued by her insurance carrier and no longer covered, glucose on presentation was over 400. Endocrinology was consulted in order to assist in management of diabetes. PAST MEDICAL HISTORY: 1. Type 2 diabetes. 2. Hypertension. 3. Osteoarthritis. 4. Diabetic neuropathy. PAST SURGICAL HISTORY: Debridement of right diabetic foot ulcer. MEDICATIONS: Reviewed and reconciled. ALLERGIES TO MEDICATIONS: None. SOCIAL HISTORY: Single and disabled, has a caregiver. No smoking, alcohol, or drug use REVIEW OF SYSTEMS: As per history of present illness. PHYSICAL EXAMINATION: VITAL SIGNS: Blood pressure 130/82, pulse 80, temperature 98.2 degrees. HEENT: Pupils are equal and reactive to light. Sclerae are anicteric. NECK: No JVD. No thyromegaly. No bruit. LUNGS: Clear. HEART: Regular rate and rhythm. ABDOMEN: Positive bowel sounds. EXTREMITIES: No clubbing or cyanosis, positive for edema. DIAGNOSES: 1. Diabetes out of control due to noncompliance with insulin 2. Hypertension. 3. Peripheral neuropathy. PLAN: I started the patient on basal and bolus insulin, Levemir and NovoLog. We will keep glimepiride on broad unless the patient's blood sugar drop and then we are going to discontinue. I will follow the patient during the hospital stay. Thank you, Dr. Ash, for the courtesy of this consultation. Dwaine Hector M.D. DR: Ben JOB#: [id number] CC: DEONDRE
--- NOTE | 2017-03-07 19:34 | Cardiology Report ---
APPROVED REPORT EXAM: Two-dimensional and M-mode echocardiogram with Doppler and color Doppler. INDICATION Left Ventricular Function M-Mode DIMENSIONS IVSd0.9 (0.7-1.1cm)Left Atrium (MM)4.9 (1.6-4.0cm) LVDd5.3 (3.5-5.6cm)Aortic Root3.3 (2.0-3.7cm) PWd1.1 (0.7-1.1cm)Aortic Cusp Exc.2.2 (1.5-2.0cm) LVDs2.7 (2.5-4.0cm) PWs1.9 cm Normal left ventricular chamber size, systolic function and wall motion. Left ventricular ejection fraction estimated to be 55 %. No evidence of ventricular hypertrophy. No evidence of pericardial fat or effusion. Mild bi-atrial enlargement. Right ventricular chamber size is within normal limits. Mild focal aortic valve sclerosis with adequate cusp excursion. Mildly thickened mitral valve leaflets with normal excursion. Mild mitral annulus and aortic root calcification. Normal pulmonic valve structure. Normal tricuspid valve structure. IVC dilated at 2.2 cm with physiologic collapse. A color flow and spectral Doppler study was performed and revealed: No aortic regurgitation. Trace mitral regurgitation. Mitral inflow velocities indicates normal left ventricular diastolic function. Mild tricuspid regurgitation. Tricuspid systolic velocities suggests peak right ventricular systolic pressure of 44 mmHg, consistent with mild pulmonary hypertension. Mild pulmonic regurgitation present.
[2017-03-07] MEDS: Levemir Flexpen SUBQ SCH (22:09)
--- NOTE | 2017-03-07 23:20 | Pulmonology Progress Note ---
Assessment/Plan Problems: (1) Uncontrolled diabetes mellitus (2) HTN (hypertension) (3) Cardiomegaly (4) Renal failure Assessment/Plan improving Bs better f/u renal parameters echo to evaluate cardiomegaly Subjective Allergies: Coded Allergies: No Known Allergies (Verified , 04/16/11) Objective Last 24 Hour Vital Signs Date Time Temp Pulse Resp B/P Pulse Ox O2 Delivery O2 Flow Rate FiO2 03/07/17 22:04 163/86 03/07/17 22:04 68 163/86 03/07/17 20:00 98.2 68 18 163/86 95 Room Air 03/07/17 17:31 154/80 03/07/17 16:00 98.7 64 20 154/80 98 Room Air 03/07/17 13:10 161/68 03/07/17 13:10 161/68 03/07/17 12:00 96.8 63 18 161/68 100 Room Air 03/07/17 08:35 71 143/74 03/07/17 08:34 143/74 03/07/17 08:00 97.5 71 18 143/74 99 Room Air 03/07/17 06:38 139/83 03/07/17 04:00 97.0 68 20 132/79 100 Room Air 03/07/17 00:00 97.7 70 20 139/83 100 Room Air Intake and Output 03/06/17 03/07/17 19:00 07:00 Intake Total 3640 ml 2320 ml Output Total 200 ml 2375 ml Balance 3440 ml -55 ml Intake Oral 1440 ml 720 ml IV Total 2200 ml 1600 ml Output Urine Total 200 ml 2375 ml # Voids 4 Laboratory Tests 03/07/17 05:10: White Blood Count 6.0, Red Blood Count 3.58L, Hemoglobin 10.5L, Hematocrit 32.2L , Mean Corpuscular Volume 90, Mean Corpuscular Hemoglobin 29.5, Mean Corpuscular Hemoglobin Concent 32.7, Red Cell Distribution Width 12.0, Platelet Count 199, Mean Platelet Volume 9.1, Neutrophils (%) (Auto) 56.4, Lymphocytes (% ) (Auto) 26.5, Monocytes (%) (Auto) 12.3H, Eosinophils (%) (Auto) 3.5H, Basophils (%) (Auto) 1.2, Sodium Level 140, Potassium Level 4.2, Chloride Level 102, Carbon Dioxide Level 25, Anion Gap 13, Blood Urea Nitrogen 12, Creatinine 1.4H, Estimat Glomerular Filtration Rate > 60, Glucose Level 99, Calcium Level 8.6 Current Medications Medications (Trade) Dose Ordered Sig/Enrrique Route PRN Reason Start Time Stop Time Status Last Admin Dose Admin Atenolol (Tenormin) 100 mg Q12HR ORAL 03/05/17 21:00 04/04/17 20:59 03/07/17 22:04 Clonidine HCl (Catapres) 0.2 mg TID ORAL 03/05/17 18:00 04/04/17 17:59 03/07/17 17:31 Dextrose (Dextrose 50%) STAT PRN IV Hypoglycemia 03/05/17 09:30 04/04/17 09:29 Fenofibrate (Tricor) 145 mg DAILY ORAL 03/06/17 09:00 04/05/17 08:59 03/07/17 08:34 Gabapentin (Neurontin) 300 mg THREE TIMES A DAY ORAL 03/05/17 18:00 04/04/17 17:59 03/07/17 17:31 Heparin Sodium (Porcine) (Heparin 5000 units/ml) 5,000 units EVERY 8 HOURS SUBQ 03/05/17 22:00 04/04/17 21:59 03/07/17 22:07 Hydralazine HCl (Apresoline) 50 mg Q8HR ORAL 03/05/17 16:00 04/04/17 15:59 03/07/17 22:04 Insulin Aspart (NovoLOG) AC+HS SUBQ 03/07/17 11:30 04/06/17 11:29 03/07/17 22:08 Insulin Aspart (NovoLOG) 6 units NOVOTIAC SUBQ 03/06/17 11:50 04/05/17 11:49 03/07/17 12:12 Insulin Detemir (Levemir) 18 units BEDTIME SUBQ 03/07/17 21:00 04/06/17 20:59 03/07/17 22:09 ABNER COATES Mar 07, 2017 23:20
[2017-03-08 04:00] VITALS: BP 146/78
[2017-03-08] MEDS: HydrALAZINE 50mg tab ORAL SCH ×3 (06:23→21:24)
[2017-03-08] MEDS: Heparin 5000 units/ml inj SUBQ SCH ×3 (06:25→21:24)
[2017-03-08] MEDS: NovoLOG Insulin Flexpen SUBQ SCH ×8 (06:25→21:25)
[2017-03-08 07:13] LABS: BASOPHILS % (AUTO) 1.7 % (0.0-2.0); EOSINOPHILS % (AUTO) 3.4 % (0.0-3.0); LYMPHOCYTES % (AUTO) 28.5 % (20.0-45.0); MEAN CORPUSCULAR HEMOGLOBIN 29.4 PG (27.0-31.0); MEAN CORPUSCULAR HGB CONC 32.6 G/DL (32.0-36.0); MEAN CORPUSCULAR VOLUME 90 FL (80-99); MEAN PLATELET VOLUME 9.5 FL (6.5-10.1); MONOCYTES % (AUTO) 12.7 % (1.0-10.0); NEUTROPHILS % (AUTO) 53.8 % (45.0-75.0); PLATELET COUNT 199 K/UL (150-450); RED BLOOD COUNT 3.72 M/UL (4.70-6.10); RED CELL DISTRIBUTION WIDTH 12.2 % (11.6-14.8)
[2017-03-08 07:35] LABS: CALCIUM 8.9 mg/dL (8.6-10.2); CREATININE 1.5 mg/dL (0.7-1.2); GLOMERULAR FILTRATION RATE 57.3 mL/min (>60); POTASSIUM 4.1 mEQ/L (3.4-4.9)
[2017-03-08 08:39] VITALS: BP 125/79
[2017-03-08] MEDS: cloNIDine 0.2mg Tab ORAL SCH ×3 (09:25→17:27)
[2017-03-08 12:00] VITALS: BP 153/75
[2017-03-08 16:00] VITALS: BP 177/90
--- NOTE | 2017-03-08 18:16 | General Progress Note ---
Assessment/Plan Problem List: (1) Uncontrolled diabetes mellitus ICD Codes: E11.65 - Type 2 diabetes mellitus with hyperglycemia SNOMED: 473310297 (2) HTN (hypertension) ICD Codes: I10 - Essential (primary) hypertension SNOMED: 64385736 (3) Cardiomegaly ICD Codes: I51.7 - Cardiomegaly SNOMED: 4379478 Assessment/Plan continue Levemir 18 units qhs continue Novolog 6 units ac tid + SSI Subjective Allergies: Coded Allergies: No Known Allergies (Verified , 04/16/11) All Systems: reviewed and negative except above Subjective events noted glycemic control improved w/o hypoglycemia Objective Last 24 Hour Vital Signs Date Time Temp Pulse Resp B/P Pulse Ox O2 Delivery O2 Flow Rate FiO2 03/08/17 17:27 177/90 03/08/17 16:00 98.2 62 22 177/90 100 Room Air 03/08/17 13:26 153/75 03/08/17 13:25 153/75 03/08/17 12:00 98.2 57 19 153/75 100 Room Air 03/08/17 09:25 125/79 03/08/17 09:25 66 125/79 03/08/17 08:39 97.7 66 20 125/79 98 Room Air 03/08/17 06:23 146/78 03/08/17 04:00 97.9 62 18 146/78 99 Room Air 03/07/17 23:48 97.0 63 18 148/75 100 Room Air 03/07/17 22:04 163/86 03/07/17 22:04 68 163/86 03/07/17 20:00 98.2 68 18 163/86 95 Room Air Intake and Output 03/07/17 03/08/17 19:00 07:00 Intake Total 1350 ml 500 ml Balance 1350 ml 500 ml Intake Oral 950 ml 500 ml IV Total 400 ml # Voids 4 3 Laboratory Tests 03/08/17 06:20: White Blood Count 6.0, Red Blood Count 3.72L, Hemoglobin 10.9L, Hematocrit 33.6L , Mean Corpuscular Volume 90, Mean Corpuscular Hemoglobin 29.4, Mean Corpuscular Hemoglobin Concent 32.6, Red Cell Distribution Width 12.2, Platelet Count 199, Mean Platelet Volume 9.5, Neutrophils (%) (Auto) 53.8, Lymphocytes (% ) (Auto) 28.5, Monocytes (%) (Auto) 12.7H, Eosinophils (%) (Auto) 3.4H, Basophils (%) (Auto) 1.7, Sodium Level 138, Potassium Level 4.1, Chloride Level 99, Carbon Dioxide Level 24, Anion Gap 15, Blood Urea Nitrogen 16, Creatinine 1.5H, Estimat Glomerular Filtration Rate 57.3, Glucose Level 214#H, Calcium Level 8.9 Height (Feet): 6 Height (Inches): 1.00 Weight (Pounds): 253 General Appearance: WD/WN EENT: PERRL/EOMI Neck: non-tender Cardiovascular: normal peripheral pulses Respiratory/Chest: chest wall non-tender Abdomen: normal bowel sounds Pelvis: normal external exam Edema: no edema noted Arm (L), no edema noted Arm (R), no edema noted Leg (L), no edema noted Leg (R), no edema noted Pedal (L), no edema noted Pedal (R), no edema noted Generalized Objective Current Medications Medications (Trade) Dose Ordered Sig/Enrrique Route PRN Reason Start Time Stop Time Status Last Admin Dose Admin Atenolol (Tenormin) 100 mg Q12HR ORAL 03/05/17 21:00 04/04/17 20:59 03/08/17 09:25 Clonidine HCl (Catapres) 0.2 mg TID ORAL 03/05/17 18:00 04/04/17 17:59 03/08/17 17:27 Dextrose (Dextrose 50%) STAT PRN IV Hypoglycemia 03/05/17 09:30 04/04/17 09:29 Fenofibrate (Tricor) 145 mg DAILY ORAL 03/06/17 09:00 04/05/17 08:59 03/08/17 09:25 Gabapentin (Neurontin) 300 mg THREE TIMES A DAY ORAL 03/05/17 18:00 04/04/17 17:59 03/08/17 17:27 Heparin Sodium (Porcine) (Heparin 5000 units/ml) 5,000 units EVERY 8 HOURS SUBQ 03/05/17 22:00 04/04/17 21:59 03/08/17 13:26 Hydralazine HCl (Apresoline) 50 mg Q8HR ORAL 03/05/17 16:00 04/04/17 15:59 03/08/17 13:25 Insulin Aspart (NovoLOG) AC+HS SUBQ 03/07/17 11:30 04/06/17 11:29 03/08/17 17:27 Insulin Aspart (NovoLOG) 6 units NOVOTIAC SUBQ 03/06/17 11:50 04/05/17 11:49 03/08/17 17:26 Insulin Detemir (Levemir) 18 units BEDTIME SUBQ 03/07/17 21:00 04/06/17 20:59 03/07/17 22:09 Item Value Date Time Bedside Blood Glucose 163 mg/dl H 03/08/17 1727 Bedside Blood Glucose 105 mg/dl 03/08/17 1150 Bedside Blood Glucose 214 mg/dl H 03/08/17 0630 Bedside Blood Glucose 179 mg/dl H 03/07/17 2209 Bedside Blood Glucose 76 mg/dl 03/07/17 1650 Bedside Blood Glucose 113 mg/dl 03/07/17 1212 WILLIE IRWIN Mar 08, 2017 18:16
[2017-03-08] MEDS ORDERED: APRESOLINE50 MG ORAL (18:53)
[2017-03-08] MEDS ORDERED: LEVEMIR FL100 UNIT/1 SUBQ (18:53)
[2017-03-08] MEDS ORDERED: NOVOLOG100 UNITS1 SUBQ (18:53)
--- NOTE | 2017-03-08 18:56 | Internal Med Progress Note ---
Subjective Date of Service: Mar 08, 2017 Physician Name Porfirio Solano Attending Physician Javier Velásquez MD Current Medications Medications (Trade) Dose Ordered Sig/Enrrique Route PRN Reason Start Time Stop Time Status Last Admin Dose Admin Atenolol (Tenormin) 100 mg Q12HR ORAL 03/05/17 21:00 04/04/17 20:59 03/08/17 09:25 Clonidine HCl (Catapres) 0.2 mg TID ORAL 03/05/17 18:00 04/04/17 17:59 03/08/17 17:27 Dextrose (Dextrose 50%) STAT PRN IV Hypoglycemia 03/05/17 09:30 04/04/17 09:29 Fenofibrate (Tricor) 145 mg DAILY ORAL 03/06/17 09:00 04/05/17 08:59 03/08/17 09:25 Gabapentin (Neurontin) 300 mg THREE TIMES A DAY ORAL 03/05/17 18:00 04/04/17 17:59 03/08/17 17:27 Heparin Sodium (Porcine) (Heparin 5000 units/ml) 5,000 units EVERY 8 HOURS SUBQ 03/05/17 22:00 04/04/17 21:59 03/08/17 13:26 Hydralazine HCl (Apresoline) 50 mg Q8HR ORAL 03/05/17 16:00 04/04/17 15:59 03/08/17 13:25 Insulin Aspart (NovoLOG) AC+HS SUBQ 03/07/17 11:30 04/06/17 11:29 03/08/17 17:27 Insulin Aspart (NovoLOG) 6 units NOVOTIAC SUBQ 03/06/17 11:50 04/05/17 11:49 03/08/17 17:26 Insulin Detemir (Levemir) 18 units BEDTIME SUBQ 03/07/17 21:00 04/06/17 20:59 03/07/17 22:09 Allergies: Coded Allergies: No Known Allergies (Verified , 04/16/11) ROS Limited/Unobtainable: No Constitutional: Reports: no symptoms HEENT: Reports: no symptoms Cardiovascular: Reports: no symptoms Respiratory: Reports: no symptoms Gastrointestinal/Abdominal: Reports: no symptoms Genitourinary: Reports: no symptoms Neurologic/Psychiatric: Reports: no symptoms Subjective 61 YO M admitted with hyperglycemia. Cover for Int Med-Dr Velásquez. Objective Last Vital Signs Date Time Temp Pulse Resp B/P Pulse Ox O2 Delivery O2 Flow Rate FiO2 03/08/17 17:27 177/90 03/08/17 16:00 98.2 62 22 100 Room Air Laboratory Tests Test 03/08/17 06:20 White Blood Count 6.0 K/UL (4.8-10.8) Red Blood Count 3.72 M/UL (4.70-6.10) L Hemoglobin 10.9 G/DL (14.2-18.0) L Hematocrit 33.6 % (42.0-52.0) L Mean Corpuscular Volume 90 FL (80-99) Mean Corpuscular Hemoglobin 29.4 PG (27.0-31.0) Mean Corpuscular Hemoglobin Concent 32.6 G/DL (32.0-36.0) Red Cell Distribution Width 12.2 % (11.6-14.8) Platelet Count 199 K/UL (150-450) Mean Platelet Volume 9.5 FL (6.5-10.1) Neutrophils (%) (Auto) 53.8 % (45.0-75.0) Lymphocytes (%) (Auto) 28.5 % (20.0-45.0) Monocytes (%) (Auto) 12.7 % (1.0-10.0) H Eosinophils (%) (Auto) 3.4 % (0.0-3.0) H Basophils (%) (Auto) 1.7 % (0.0-2.0) Sodium Level 138 mEQ/L (135-145) Potassium Level 4.1 mEQ/L (3.4-4.9) Chloride Level 99 mEQ/L (98-107) Carbon Dioxide Level 24 mEQ/L (20-30) Anion Gap 15 (5-15) Blood Urea Nitrogen 16 mg/dL (7-23) Creatinine 1.5 mg/dL (0.7-1.2) H Estimat Glomerular Filtration Rate 57.3 mL/min (>60) Glucose Level 214 mg/dL (74-106) #H Calcium Level 8.9 mg/dL (8.6-10.2) Intake and Output 03/07/17 03/08/17 19:00 07:00 Intake Total 1350 ml 500 ml Balance 1350 ml 500 ml Intake Oral 950 ml 500 ml IV Total 400 ml # Voids 4 3 Objective General: alert, cooperative, no distress, appears stated age Head: normocephalic, without obvious abnormality, atraumatic Eyes: conjunctivae/corneas clear. PERRL, EOM's intact Throat: lips, mucosa, and tongue normal. MMM Neck: supple, symmetrical, trachea midline, and no JVD Lungs: clear to auscultation bilaterally Heart: regular rate and rhythm, S1, S2 normal, no murmur, click, rub or gallop Abdomen: soft, non-tender, non-distended, bowel sounds normal; no masses or organomegaly Extremities: extremities normal, atraumatic, no cyanosis or edema Pulses: 2+ and symmetric Skin: skin color, texture, turgor normal; no rashes or lesions Neurologic: grossly normal, no focal deficits Assessment/Plan Problem List: (1) Hypercholesteremia Assessment & Plan: Cont tricor (2) Hyperglycemia Assessment & Plan: Improving. See endocrinology consult. Cont novolog sliding scale and discontinue amaryl. Decrease levemir to 18 units QHS (3) Uncontrolled diabetes mellitus (4) HTN (hypertension) Assessment & Plan: Cont hydralazine and atenolol Assessment/Plan Discharge in am 03/09/17 with [facility]. PORFIRIO SOLANO Mar 08, 2017 18:56
--- NOTE | 2017-03-08 19:13 | Pulmonology Progress Note ---
Assessment/Plan Problems: (1) Uncontrolled diabetes mellitus (2) HTN (hypertension) (3) Cardiomegaly (4) Renal failure Assessment/Plan improving Bs better f/u renal parameters echo to evaluate cardiomegaly levemir 12 bid and Novolog 6 before meals Subjective ROS Limited/Unobtainable: No Interval Events: BS better controlled without any hypoglycemia Constitutional: Reports: no symptoms HEENT: Repors: no symptoms Allergies: Coded Allergies: No Known Allergies (Verified , 04/16/11) Objective Last 24 Hour Vital Signs Date Time Temp Pulse Resp B/P Pulse Ox O2 Delivery O2 Flow Rate FiO2 03/08/17 17:27 177/90 03/08/17 16:00 98.2 62 22 177/90 100 Room Air 03/08/17 13:26 153/75 03/08/17 13:25 153/75 03/08/17 12:00 98.2 57 19 153/75 100 Room Air 03/08/17 09:25 125/79 03/08/17 09:25 66 125/79 03/08/17 08:39 97.7 66 20 125/79 98 Room Air 03/08/17 06:23 146/78 03/08/17 04:00 97.9 62 18 146/78 99 Room Air 03/07/17 23:48 97.0 63 18 148/75 100 Room Air 03/07/17 22:04 163/86 03/07/17 22:04 68 163/86 03/07/17 20:00 98.2 68 18 163/86 95 Room Air Intake and Output 03/07/17 03/08/17 19:00 07:00 Intake Total 1350 ml 500 ml Balance 1350 ml 500 ml Intake Oral 950 ml 500 ml IV Total 400 ml # Voids 4 3 General Appearance: WD/WN HEENT: normocephalic, atraumatic Respiratory/Chest: chest wall non-tender, lungs clear, normal breath sounds, no respiratory distress Cardiovascular: normal peripheral pulses, normal rate, regular rhythm Abdomen: normal bowel sounds, soft, non tender, no organomegaly Extremities: no cyanosis, no clubbing, no edema Skin: no rash, no lesions 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, no motor/sensory deficits, abnormal gait Laboratory Tests 03/08/17 06:20: White Blood Count 6.0, Red Blood Count 3.72L, Hemoglobin 10.9L, Hematocrit 33.6L , Mean Corpuscular Volume 90, Mean Corpuscular Hemoglobin 29.4, Mean Corpuscular Hemoglobin Concent 32.6, Red Cell Distribution Width 12.2, Platelet Count 199, Mean Platelet Volume 9.5, Neutrophils (%) (Auto) 53.8, Lymphocytes (% ) (Auto) 28.5, Monocytes (%) (Auto) 12.7H, Eosinophils (%) (Auto) 3.4H, Basophils (%) (Auto) 1.7, Sodium Level 138, Potassium Level 4.1, Chloride Level 99, Carbon Dioxide Level 24, Anion Gap 15, Blood Urea Nitrogen 16, Creatinine 1.5H, Estimat Glomerular Filtration Rate 57.3, Glucose Level 214#H, Calcium Level 8.9 Current Medications Medications (Trade) Dose Ordered Sig/Enrrique Route PRN Reason Start Time Stop Time Status Last Admin Dose Admin Atenolol (Tenormin) 100 mg Q12HR ORAL 03/05/17 21:00 04/04/17 20:59 03/08/17 09:25 Clonidine HCl (Catapres) 0.2 mg TID ORAL 03/05/17 18:00 04/04/17 17:59 03/08/17 17:27 Dextrose (Dextrose 50%) STAT PRN IV Hypoglycemia 03/05/17 09:30 04/04/17 09:29 Fenofibrate (Tricor) 145 mg DAILY ORAL 03/06/17 09:00 04/05/17 08:59 03/08/17 09:25 Gabapentin (Neurontin) 300 mg THREE TIMES A DAY ORAL 03/05/17 18:00 04/04/17 17:59 03/08/17 17:27 Heparin Sodium (Porcine) (Heparin 5000 units/ml) 5,000 units EVERY 8 HOURS SUBQ 03/05/17 22:00 04/04/17 21:59 03/08/17 13:26 Hydralazine HCl (Apresoline) 50 mg Q8HR ORAL 03/05/17 16:00 04/04/17 15:59 03/08/17 13:25 Insulin Aspart (NovoLOG) AC+HS SUBQ 03/07/17 11:30 04/06/17 11:29 03/08/17 17:27 Insulin Aspart (NovoLOG) 6 units NOVOTIAC SUBQ 03/06/17 11:50 04/05/17 11:49 03/08/17 17:26 Insulin Detemir (Levemir) 18 units BEDTIME SUBQ 03/07/17 21:00 04/06/17 20:59 03/07/17 22:09 ABNER COATES Mar 08, 2017 19:13
[2017-03-08 20:00] VITALS: BP 147/75
[2017-03-08] MEDS: Levemir Flexpen SUBQ SCH (21:25)
[2017-03-09] VITALS: BP 143/73
[2017-03-09 04:00] VITALS: BP 148/78
[2017-03-09] MEDS: HydrALAZINE 50mg tab ORAL SCH (06:31)
[2017-03-09] MEDS: Heparin 5000 units/ml inj SUBQ SCH (06:33)
[2017-03-09] MEDS: NovoLOG Insulin Flexpen SUBQ SCH ×4 (06:34→12:23)
[2017-03-09 07:09] LABS: CALCIUM 9.2 mg/dL (8.6-10.2); CREATININE 1.5 mg/dL (0.7-1.2); GLOMERULAR FILTRATION RATE 57.3 mL/min (>60); POTASSIUM 4.3 mEQ/L (3.4-4.9)
[2017-03-09 07:21] LABS: BASOPHILS % (AUTO) 2.4 % (0.0-2.0); EOSINOPHILS % (AUTO) 3.1 % (0.0-3.0); LYMPHOCYTES % (AUTO) 29.4 % (20.0-45.0); MEAN CORPUSCULAR HEMOGLOBIN 29.7 PG (27.0-31.0); MEAN CORPUSCULAR HGB CONC 33.5 G/DL (32.0-36.0); MEAN CORPUSCULAR VOLUME 89 FL (80-99); MEAN PLATELET VOLUME 10.1 FL (6.5-10.1); MONOCYTES % (AUTO) 10.6 % (1.0-10.0); NEUTROPHILS % (AUTO) 54.5 % (45.0-75.0); PLATELET COUNT 209 K/UL (150-450); RED BLOOD COUNT 3.69 M/UL (4.70-6.10); WHITE BLOOD COUNT 5.1 K/UL (4.8-10.8)
[2017-03-09] MEDS: cloNIDine 0.2mg Tab ORAL SCH ×2 (08:29→13:10)
[2017-03-09 08:30] VITALS: BP 154/89
--- NOTE | 2017-03-09 10:18 | General Progress Note ---
Assessment/Plan Problem List: (1) Uncontrolled diabetes mellitus ICD Codes: E11.65 - Type 2 diabetes mellitus with hyperglycemia SNOMED: 066352111 (2) HTN (hypertension) ICD Codes: I10 - Essential (primary) hypertension SNOMED: 87831488 (3) Cardiomegaly ICD Codes: I51.7 - Cardiomegaly SNOMED: 0470005 Assessment/Plan increase Levemir to 22 units qhs continue Novolog 6 units ac tid + SSI Subjective Allergies: Coded Allergies: No Known Allergies (Verified , 04/16/11) All Systems: reviewed and negative except above Subjective events noted fasting glucose is on higher side Objective Last 24 Hour Vital Signs Date Time Temp Pulse Resp B/P Pulse Ox O2 Delivery O2 Flow Rate FiO2 03/09/17 08:30 97.7 64 18 154/89 99 Room Air 03/09/17 08:30 64 159/89 03/09/17 08:29 159/89 03/09/17 06:31 148/78 03/09/17 04:00 97.8 67 18 148/78 98 Room Air 03/09/17 00:00 97.9 66 18 143/73 99 Room Air 03/08/17 21:24 147/75 03/08/17 21:24 63 147/75 03/08/17 20:00 97.5 63 18 147/75 98 Room Air 03/08/17 17:27 177/90 03/08/17 16:00 98.2 62 22 177/90 100 Room Air 03/08/17 13:26 153/75 03/08/17 13:25 153/75 03/08/17 12:00 98.2 57 19 153/75 100 Room Air Intake and Output 03/08/17 03/09/17 19:00 07:00 Intake Total 475 ml Balance 475 ml Intake Oral 475 ml # Voids 2 3 Laboratory Tests 03/09/17 06:25: White Blood Count 5.1, Red Blood Count 3.69L, Hemoglobin 11.0L, Hematocrit 32.7L , Mean Corpuscular Volume 89, Mean Corpuscular Hemoglobin 29.7, Mean Corpuscular Hemoglobin Concent 33.5, Red Cell Distribution Width 12.0, Platelet Count 209, Mean Platelet Volume 10.1, Neutrophils (%) (Auto) 54.5, Lymphocytes ( %) (Auto) 29.4, Monocytes (%) (Auto) 10.6H, Eosinophils (%) (Auto) 3.1H, Basophils (%) (Auto) 2.4H, Sodium Level 139, Potassium Level 4.3, Chloride Level 100, Carbon Dioxide Level 27, Anion Gap 12, Blood Urea Nitrogen 19, Creatinine 1.5H, Estimat Glomerular Filtration Rate 57.3, Glucose Level 226H, Calcium Level 9.2 Height (Feet): 6 Height (Inches): 1.00 Weight (Pounds): 253 General Appearance: no apparent distress EENT: PERRL/EOMI Cardiovascular: normal peripheral pulses Respiratory/Chest: chest wall non-tender Abdomen: normal bowel sounds Pelvis: normal external exam Edema: no edema noted Arm (L), no edema noted Arm (R), no edema noted Leg (L), no edema noted Leg (R), no edema noted Pedal (L), no edema noted Pedal (R), no edema noted Generalized Objective Current Medications Medications (Trade) Dose Ordered Sig/Enrrique Route PRN Reason Start Time Stop Time Status Last Admin Dose Admin Atenolol (Tenormin) 100 mg Q12HR ORAL 03/05/17 21:00 04/04/17 20:59 03/09/17 08:30 Clonidine HCl (Catapres) 0.2 mg TID ORAL 03/05/17 18:00 04/04/17 17:59 03/09/17 08:29 Dextrose (Dextrose 50%) STAT PRN IV Hypoglycemia 03/05/17 09:30 04/04/17 09:29 Fenofibrate (Tricor) 145 mg DAILY ORAL 03/06/17 09:00 04/05/17 08:59 03/09/17 08:29 Gabapentin (Neurontin) 300 mg THREE TIMES A DAY ORAL 03/05/17 18:00 04/04/17 17:59 03/09/17 08:29 Heparin Sodium (Porcine) (Heparin 5000 units/ml) 5,000 units EVERY 8 HOURS SUBQ 03/05/17 22:00 04/04/17 21:59 03/09/17 06:33 Hydralazine HCl (Apresoline) 50 mg Q8HR ORAL 03/05/17 16:00 04/04/17 15:59 03/09/17 06:31 Insulin Aspart (NovoLOG) AC+HS SUBQ 03/07/17 11:30 04/06/17 11:29 03/09/17 06:34 Insulin Aspart (NovoLOG) 6 units NOVOTIAC SUBQ 03/06/17 11:50 04/05/17 11:49 03/09/17 06:34 Insulin Detemir (Levemir) 18 units BEDTIME SUBQ 03/07/17 21:00 04/06/17 20:59 03/08/17 21:25 Item Value Date Time Bedside Blood Glucose 211 mg/dl H 03/09/17 0634 Bedside Blood Glucose 112 mg/dl 03/08/17 2147 Bedside Blood Glucose 163 mg/dl H 03/08/17 1727 Bedside Blood Glucose 105 mg/dl 03/08/17 1150 Bedside Blood Glucose 214 mg/dl H 03/08/17 0630 WILLIE IRWIN Mar 09, 2017 10:18
[2017-03-09 12:17] VITALS: BP 134/73
[2017-03-09 13:10] VITALS: BP 134/73
[2017-03-09] MEDS ORDERED: Tubing IV Secondary IV ONE (13:59)
[2017-03-09] MEDS ORDERED: Levemir Flexpen SUBQ SCH (21:00)
--- NOTE | 2017-03-10 19:31 | Discharge Summary ---
Discharge Summary Hospital Course Date of Admission Mar 05, 2017 at 02:35 Date of Discharge Mar 09, 2017 at 14:00 Admitting Diagnosis hyperglycemia/renal failure AGGIE Fink is a 61 year old male who was admitted on Mar 05, 2017 at 02:35 for Hyperglycemia,Renal Failure Hospital Course [id number] Discharge Discharge Disposition Patient was discharged to Home with Home Health(06) Discharge Diagnoses: Madyson Mcgarry NP Mar 10, 2017 19:31
--- NOTE | 2017-03-11 05:08 | Discharge Summary 2 SIG ---
DATE OF ADMISSION: 03/05/2017 DATE OF DISCHARGE: 03/09/2017 CONSULTANTS: 1. Dwaine Hector M.D. 2. Guanakito Green M.D. BRIEF HOSPITAL COURSE: The patient is a 61-year-old male, who came in with chief complaint of high blood sugar. The patient has a history of type 2 diabetes and had insurance changed about a month ago. He was previously on 70/30 insulin and was no longer covered and was switched to regular insulin, which he takes 10 units before each meal and nightly. Over the last month, Blood sugar has been high, which is 454. He then presented to ED. On evaluation, glucose level was 369, anion gap of 10, the patient was admitted for hyperglycemia and blood sugars were monitored. He was continued on basal and bolus insulin as well as glimepiride. Insulins were adjusted. He came in with a creatinine of 2.0. Renal ultrasound done showed unremarkable kidneys. Echocardiogram showed ejection fraction of 55% with normal left ventricular size, function, and wall motion with mild pulmonary hypertension, mild tricuspid regurgitation, mild mitral regurgitation, no aortic regurgitation. He was continued on hydralazine and atenolol for blood pressure and was given TriCor for hypercholesterolemia. Blood sugar was better. The patient was then discharged home. Advised to follow up with PMD. The patient was discharged home with home health. FINAL DIAGNOSES: 1. Diabetes mellitus, out of control. 2. Hyperglycemia. 3. Hypercholesterolemia. 4. Hypertension. 5. Cardiomegaly. 6. Renal failure. Porfirio Ash M.D. I have been assigned to dictate discharge summary on this account and I was not involved in the patient's management. Madyson Mcgarry N.P. DR: LI JOB#: [id number] CC: DEONDRE
== END 2017-03-09 14:00 | disposition home health service (06) | DRG 420 ==
LOC: EMR 22:38 → EDBEDREQ 03-05 02:35 → 4W 03-05 02:35 → EDBEDREQ 03-05 06:45 → 4W 03-05 08:06
DX: E11.65 Type 2 diabetes mellitus with hyperglycemia (principal); N19 Unspecified kidney failure; E11.42 Type 2 diabetes mellitus with diabetic polyneuropathy; E11.21 Type 2 diabetes mellitus with diabetic nephropathy; I10 Essential (primary) hypertension; E78.00 Pure hypercholesterolemia, unspecified; M19.90 Unspecified osteoarthritis, unspecified site; Z79.4 Long term (current) use of insulin; E11.319 Type 2 diabetes mellitus with unspecified diabetic retinopathy without macular edema; Z91.14 Patient's other noncompliance with medication regimen; I51.7 Cardiomegaly
CPT/HCPCS: 36415; 71010; 76775; 80048; 80053; 81001; 81003; 82009; 82436; 82533; 82550; 82962; 83036; 83735; 83930; 83935; 84100; 84133; 84300; 84439; 84443; 84481; 84484; 84550; 85025; 89050; 93005; 93306; J1815; S5561